=== PATIENT | male | born 1960 | race Caucasian/White ===

== ENCOUNTER → 2017-02-06 | Outpatient (CLI) | payer OTHER | END | disposition home or self-care (01) | LOC: C.LAB 17:38 | PROVIDERS: ATTEND Urology | DX: C61 Malignant neoplasm of prostate (principal) ==

== ENCOUNTER → 2017-02-13 | Outpatient (CLI) | payer OTHER ==
--- NOTE | 2017-02-13 14:35 | DIAGNOSTIC IMAGING REPORT ---
CT SCAN OF THE ABDOMEN AND PELVIS WITHOUT CONTRAST CLINICAL HISTORY: NEUROGENIC BLADDER, SOLITARY KIDNEY COMPARISON STUDY: Outside CT scan from [facility] dated 10/04/2015 TECHNIQUE: CT scan of the abdomen and pelvis was performed from the lung bases to the proximal femurs. Images are reviewed in the axial, sagittal, and coronal planes. IV contrast was not administered for this examination. A dose lowering technique was utilized adhering to the principles of ALARA. A Friedman catheter was placed into the patient's urostomy. Contrast was instilled. Initial images demonstrate the catheter at the level of the rectus fascia. No contrast was visualized within the loop urostomy. The catheter was repositioned, additional dilute Optiray 320 was injected. On the second sequence, contrast filled the loop urostomy. CT DOSE: 1947.62 mGycm FINDINGS: Lower chest: The heart is normal in size and configuration, without pericardial effusion. The lung bases and pleural spaces are clear. Liver: The unenhanced liver is normal in size, contour, and attenuation. There is no intrahepatic biliary ductal dilatation. Gallbladder: Surgically absent Spleen: Normal in size and attenuation. Pancreas: Unremarkable. Adrenal glands: Unremarkable. Kidneys: The left kidney is surgically absent. A portion of the left ureter is still present. The right kidney is lobulated in contour. There is persistent right-sided hydronephrosis. The ureter enters a short segment loop ostomy. The loop is opacified with contrast. There is no reflux of contrast into the right ureter. A stenosis at the ureteral ileal loop anastomosis must be considered. Bowel: There are no transition zone to indicate bowel obstruction. There are no acute inflammatory changes. Peritoneum: There is no intraperitoneal free air or abdominal ascites. Vasculature: The abdominal aorta is normal in course and caliber. Adenopathy: None. Pelvic viscera: The bladder surgically absent. There is a penile implant. Skeletal structures: No destructive osseous lesions are seen. IMPRESSION: 1. Postsurgical changes of a cystectomy and left-sided nephrectomy 2. Right lower quadrant ileal loop ostomy 3. Injected contrast filled the ileal loop, but there was no reflux of contrast into the right ureter 4. Lobulated right kidney with mild hydroureteronephrosis. The lack of reflux from the ileal loop into the right ureter, could indicate a stenosis at the ureteral ileal loop anastomosis 5. No evidence of pathologic adenopathy. Electronically signed by: Srinivasan Day M.D. 02/13/2017 2:34 PM Dictated Date/Time: 02/13/2017 2:23 PM
== END ==
LOC: C.CTS 13:10
PROVIDERS: ATTEND Urology
DX: C61 Malignant neoplasm of prostate (principal); N31.9 Neuromuscular dysfunction of bladder, unspecified; T85.8 Other specified complications of internal prosthetic devices, implants and grafts, not elsewhere classified; Y83.1 Surgical operation with implant of artificial internal device as the cause of abnormal reaction of the patient, or of later complication, without mention of misadventure at the time of the procedure; Z90.5 Acquired absence of kidney

== ENCOUNTER 2017-02-27 10:15 | Day surgery (SDC) | payer OTHER ==
[2017-02-19 15:13] VITALS: BMI 40.0
--- NOTE | 2017-02-19 15:48 | PAT Medication Instructions ---
Service Date Feb 19, 2017. Current Home Medication List Amlodipine (Norvasc), 5 MG PO QAM Ascorbic Acid (Vitamin C), 1 TAB PO QAM Aspirin (Aspirin Ec), 81 MG PO QPM Fish Oil (Harvey-3), 1 CAP PO QPM Fluoxetine (Prozac), 20 MG PO QAM Hydrocodone/Acetaminophen 7.5MG/325MG (Jackson 7.5MG/325MG), 1 TAB PO TID PRN for Pain Pantoprazole (Protonix), 40 MG PO QAM Phentermine Hcl (Adipex P), 0.5 TAB PO 6XWK Propranolol La (Inderal La), 120 MG PO QPM Medication Instructions For Your Scheduled Surgery - Hold the following medications 10 days prior to surgery: Aspirin (Aspirin Ec), 81 MG PO QPM Fish Oil (Harvey-3), 1 CAP PO QPM - Hold the following medications the morning of surgery: Phentermine Hcl (Adipex P), 0.5 TAB PO 6XWK Ascorbic Acid (Vitamin C), 1 TAB PO QAM - Take the following medications the morning of surgery with a sip of water: Pantoprazole (Protonix), 40 MG PO QAM Fluoxetine (Prozac), 20 MG PO QAM Hydrocodone/Acetaminophen 7.5MG/325MG (Jackson 7.5MG/325MG), 1 TAB PO TID PRN for Pain (if needed, can be taken up to four hours before surgery) Amlodipine (Norvasc), 5 MG PO QAM - Take the following medications as scheduled the night before surgery: Propranolol La (Inderal La), 120 MG PO QPM Hydrocodone/Acetaminophen 7.5MG/325MG (Jackson 7.5MG/325MG), 1 TAB PO TID PRN for Pain (if needed) If you have any questions please call us at [phone] or [phone] or [phone]
[2017-02-19 16:25] LABS: BASO % 0.9 %; BASO ABS # 0.08 K/uL (0-0.2); COMPLETE YES; EOS % 5.9 %; HEMATOCRIT 41.4 % (42-52); IG% 0.7 %; LYMPH % 33.1 %; LYMPH ABS # 2.87 K/uL (1.2-3.4); MEAN CELL VOLUME 86.3 fL (80-100); MEAN CORPUSCULAR HEMOGLOBIN 27.9 pg (25-34); MEAN CORPUSCULAR HGB CONC 32.4 g/dl (32-36); MEAN PLATELET VOLUME 9.3 fL (7.4-10.4); MONO % 13.5 %; NEUT % 45.9 %; PLATELET COUNT 213 K/uL (130-400); WHITE BLOOD COUNT 8.66 K/uL (4.8-10.8)
[2017-02-19 16:34] LABS: BUN/CREATININE RATIO 14.3 (10-20); CALCIUM 8.7 mg/dl (8.5-10.1); CREATININE 1.72 mg/dl (0.60-1.40); POTASSIUM 4.3 mmol/L (3.5-5.1)
[2017-02-19 16:39] LABS: URINE APPEARANCE CLOUDY (CLEAR); URINE BILIRUBIN NEG (NEG); URINE COLOR YELLOW; URINE EPITHELIAL CELL AUTO 0-5 /lpf (0-5); URINE NITRITE POS (NEG); URINE PH 5.5 (4.5-7.5); URINE SPECIFIC GRAVITY 1.018 (1.000-1.030); UROBILINOGEN NEG (NEG)
[2017-02-19 16:48] LABS: MANUAL MICROSCOPIC REQUIRED? NO; REVIEW REQ? NO
--- NOTE | 2017-02-19 17:25 | DIAGNOSTIC IMAGING REPORT ---
CHEST 2 VIEWS ROUTINE HISTORY: Preop. COMPARISON: None. FINDINGS: The lungs are clear. Cardiac silhouette is normal in size. No pleural effusions. No pneumothorax. IMPRESSION: No acute process. Electronically signed by: Guru Dewitt M.D. 02/19/2017 5:24 PM Dictated Date/Time: 02/19/2017 5:21 PM
[~2017-02-27] VITALS: Ht 175.3 cm; Wt 124.5 kg
[~2017-02-27 10:15] MED LIST: AMLO-110 PO; ASCO10003 PO; ASPI81TA28 PO; CEFAZOLIN 3000MG IV PUSH 15 ML IV SCH; FLUO20CA35 PO; HYDR-3983 PO; INDSR/120 PO; LACTATED RINGER'S 1000ML 1,000 ML IV SCH; OMEG10007 PO; PANT40TA PO; PHEN37.585 PO
[2017-02-27 10:44] VITALS: BP 146/91; PULSE 67; TEMP 37.1; O2SAT 98; Ht 175.3 cm; Wt 124.5 kg
--- NOTE | 2017-02-27 11:26 | History & Physical Bridge Note ---
H&P Re-Evaluation Bridge Note: I have examined the patient, reviewed the History & Physical and in the interval since the performance of the History & Physical I have noted the following changes of clinical significance: No changes noted
[2017-02-27] MEDS ORDERED: FENTANYL CITRATE INJ 50 MCG/1 ML 2 ML VIAL ONE ×2 (11:36→13:24)
[2017-02-27] MEDS ORDERED: MIDAZOLAM HCL 1 MG/ML 2ML VIAL ONE (11:36)
[2017-02-27] MEDS ORDERED: ONDANSETRON INJ 2 MG/ML 2 ML VIAL ONE (11:38)
[2017-02-27] MEDS ORDERED: PROPOFOL IV EMULSION 10 MG/ML 20 ML VIAL IV ONE (11:38)
[2017-02-27] MEDS ORDERED: LIDOCAINE HCL 2% 2 ML VIAL (20MG/ML) ONE (11:38)
[2017-02-27] MEDS ORDERED: CEFAZOLIN SOD 2000MG/10 ML IV PUSH IV ONE (11:44)
[2017-02-27] MEDS ORDERED: NURSING VERBAL MED ORDER ONE ×2 (11:45→15:15)
[2017-02-27] MEDS ORDERED: CEFAZOLIN SOD 3000MG/15 ML IV PUSH IV ONE (11:46)
[2017-02-27] MEDS ORDERED: CEPH500C2 PO (12:51)
--- NOTE | 2017-02-27 12:51 | Discharge Instructions ---
Discharge Instructions Date of Service Feb 27, 2017. Admission Reason for Admission: Stenosis Ileal Conduit Stoma Discharge Discharge Diagnosis / Problem: Right obstruction with ileal loop diversion Discharge Goals Goal(s): Decrease discomfort, Improve function Activity Recommendations Activity Limitations: resume your previous activity Lifting Limitations: no more than 25 pounds Exercise/Sports Limitations: as tolerated Shower/Bathe: no limitations . Instructions / Follow-Up Instructions / Follow-Up May have blood in urine. May have discomfort of right flank or abdomen. Call if any fevers or chills. Current Hospital Diet Patient's current hospital diet: Reg Discharge Diet Recommended Diet: Regular Diet Procedures Procedures Performed: Looposcopy with right retrograde and stent Pending Studies Studies pending at discharge: no Medical Emergencies . Who to Call and When: Medical Emergencies: If at any time you feel your situation is an emergency, please call 911 immediately. . Non-Emergent Contact Non-Emergency issues call your: Primary Care Provider, Urologist Call Non-Emergent contact if: you have a fever, temperature is above 101, temperature is above 101.5, your pain is not controlled, your pain is worsening . . "Provider Documentation" section prepared by Taz Canada,. . VTE Core Measure Inpt VTE Proph given/why not?: Daisy Denney, SCD's
[2017-02-27] MEDS ORDERED: OXYCODONE/ACETAMINOPHEN 7.5-325 TAB PO PRN (13:00)
[2017-02-27] MEDS ORDERED: LABETALOL HCL IV 5 MG/ML 20ML IV PRN (13:15)
[2017-02-27] MEDS ORDERED: FENTANYL CITRATE INJ 50 MCG/1 ML 2 ML VIAL IV PRN (13:15)
[2017-02-27] MEDS ORDERED: HYDROmorphone INJ 1 MG/ML SYR IV PRN (13:15)
[2017-02-27] MEDS ORDERED: ONDANSETRON INJ 2 MG/ML 2 ML VIAL IV PRN (13:15)
[2017-02-27] MEDS ORDERED: ATROPINE SULFATE 0.1 MG/ML 5ML SYR IV PRN (13:15)
[2017-02-27] MEDS ORDERED: MEPERIDINE HCL 25 MG/ML CARP IV PRN (13:15)
[2017-02-27] MEDS ORDERED: EpHEDrine SULFATE INJ 50 MG/ML AMP IV PRN (13:15)
[2017-02-27] MEDS ORDERED: METHYLENE BLUE 0.5% 10 ML VIAL ONE (13:27)
[2017-02-27] MEDS ORDERED: CONRAY 60% 50 ML VIAL ONE ×2 (13:37→13:52)
[2017-02-27] MEDS ORDERED: EpHEDrine SULFATE INJ 50 MG/ML AMP ONE (13:38)
--- NOTE | 2017-02-27 14:50 | [facility] Operative Report ---
Operative Report Operative Date Feb 27, 2017. Pre-Operative Diagnosis Obstruction right solitary kidney with renal failure and ileal loop diversion Post-Operative Diagnosis Same Procedure(s) Performed Looposcopy with loopogram and failed retrograde pyelogram Surgeon Dread Portable Track Line Marker Surgeon(s) None Estimated Blood Loss 10 Findings Obstruction at level of ureteric anastamosis at loop. In ability to advance wire Fluids See Anes Report Specimens None Drains 12 Fr Marshall into stoma Anesthesia General Complication(s) None Disposition Recovery Room / PACU Indications Obstruction of solitary kidney. Risks and benefits discussed. Description of Procedure Patient was consented and brought back to the operating room. Patient was placed under anesthesia in the supine position. Patient was prepped and draped in the regular sterile fashion. A time out was completed. A flexible Cystoscope was placed into the right lower quadrant loop stoma and the entire conduit was examined. T At the base of the loop, two possible openings was identified. Both were probed with a wire and an open ended catheter. The distal opening was able to have the wire partially advanced but on fluoroscopy the wire was curled and not able to be advanced. The scope was removed and a catheter was placed into the stoma. Contrast was injected into the loop for a loopogram. A small segment of ureter did fill with contrast however this abruptly ended. Contrast also pooled next to the conduit possible from reflux into the blinded ureter. The scope was once again placed and with fluorscopy and visualization a wire was attempted to be placed. The wire would partially advance and was unable to be further advanced. A catheter was unable to be passed over the wire. At this point, further attempts were ceased The scope was removed. A 12 fr marshall catheter was placed into the stoma and 7 cc of air was placed in the balloon to allow drainage of the ostomy. The patient was cleaned and a new appliance was placed. The patient aroused from anesthesia and transferred to the pacu in stable condition having tolerated the procedure well with no complications. I was present and participated in all aspects of the procedure. The patient will be monitored in the PACU until transferred. Will likely send patient for percutaneous nephrostomy placement to access the area of obstruction in an antegrade fashion I attest to the content of the Intraoperative Record and any orders documented therein. Any exceptions are noted below.
--- NOTE | 2017-02-27 14:52 | DIAGNOSTIC IMAGING REPORT ---
RETROGRADE INCLUDES KUB CLINICAL HISTORY: RETROGRADE WITH STENT PLACEMENT COMPARISON STUDY: CT of the abdomen and pelvis February 13, 2017. Fluoroscopy time: 94.7 seconds. FINDINGS: 4 fluoroscopic images from right retrograde exam were submitted for interpretation. These images demonstrate cannulation of the right lower quadrant urostomy. No reflux into the right ureter was noted. There was a suspected small amount of reflux into the left ureter. Ureteral stent could not be placed. The findings may reflect stenosis at the ureteral ileal loop anastomosis. IMPRESSION: Fluoroscopic images from retrograde exam, as detailed above. Electronically signed by: Brayan Mackay M.D. 02/27/2017 2:50 PM Dictated Date/Time: 02/27/2017 2:45 PM
[2017-02-27] MEDS ORDERED: PROMETHAZINE HCL INJ 12.5 MG in SODIUM CHLORIDE 0.9% 50ML 50 ML IV ONE (15:15)
[2017-02-27] MEDS ORDERED: ACETAMINOPHEN 1000 MG/100 ML IV IV ONE ×2 (15:23→15:30)
--- NOTE | 2017-02-27 15:42 | Anesthesiology Progress Note ---
Anesthesia Post Op Note Date & Time Feb 27, 2017 at 15:42 Vital Signs Pain Intensity: 4 Vital Signs Past 12 Hours Date Time Temp Pulse Resp B/P (MAP) Pulse Ox O2 Delivery O2 Flow Rate FiO2 02/27/17 15:35 62 18 138/83 95 Nasal Cannula 2 02/27/17 15:25 63 19 148/79 88 Room Air 02/27/17 15:15 72 24 136/87 94 Room Air 02/27/17 15:05 73 18 143/84 93 Room Air 02/27/17 14:55 66 19 124/78 97 Oxymask 10 02/27/17 14:45 68 16 117/76 98 Oxymask 10 02/27/17 14:38 36.4 67 16 116/76 97 Oxymask 10 02/27/17 10:44 37.1 67 20 146/91 (109) 98 Room Air Notes Mental Status: alert / awake / arousable, participated in evaluation Pt Amnestic to Procedure: Yes Nausea / Vomiting: adequately controlled Pain: adequately controlled Airway Patency, RR, SpO2: stable & adequate BP & HR: stable & adequate Hydration State: stable & adequate Anesthetic Complications: no major complications apparent
[2017-02-27 15:55] VITALS: BP 138/81; PULSE 62; TEMP 36.5; O2SAT 93
[2017-02-27 16:30] VITALS: BP 130/71; PULSE 63; O2SAT 96
[2017-02-27 17:00] VITALS: BP 140/81; PULSE 61; TEMP 36.5; O2SAT 96
== END 2017-02-27 17:23 | disposition home or self-care (01) ==
LOC: C.ACU 10:15
PROVIDERS: ATTEND Urology
DX: T85.8 Other specified complications of internal prosthetic devices, implants and grafts, not elsewhere classified (principal); N13.5 Crossing vessel and stricture of ureter without hydronephrosis; N18.4 Chronic kidney disease, stage 4 (severe); Z90.5 Acquired absence of kidney; N13.9 Obstructive and reflux uropathy, unspecified; I12.9 Hypertensive chronic kidney disease with stage 1 through stage 4 chronic kidney disease, or unspecified chronic kidney disease; M19.90 Unspecified osteoarthritis, unspecified site; Z87.891 Personal history of nicotine dependence; Z79.82 Long term (current) use of aspirin; Z79.899 Other long term (current) drug therapy

== ENCOUNTER → 2017-03-20 | Day surgery (SDC) | payer OTHER ==
[2017-03-16 13:46] VITALS: BMI 39.0
[~2017-03-20] VITALS: Ht 175.3 cm; Wt 120.5 kg
[~2017-03-20] MED LIST changes: +ATROPINE SULFATE 0.1 MG/ML 5ML SYR IV PRN; +BUPIVACAINE 0.5 % 5 MG/1 ML MPF 30ML VIAL ONE; -CEFAZOLIN 3000MG IV PUSH 15 ML IV SCH; +CIPROFLOXACIN / D5W 400 MG IV SCH; +CONRAY 30% 150ML BOTTLE ONE; +DEXAMETHASONE SOD INJ 4 MG/ML VIAL ONE; +EpHEDrine SULFATE INJ 50 MG/ML AMP IV PRN; +EpHEDrine SULFATE INJ 50 MG/ML AMP ONE; +FENTANYL CITRATE INJ 50 MCG/1 ML 2 ML VIAL IV PRN; +FENTANYL CITRATE INJ 50 MCG/1 ML 2 ML VIAL ONE; +GLYCOPYRROLATE INJ 0.2 MG/ML VIAL ONE; +HYDROmorphone INJ 0.5 MG/0.5 ML SYR IV PRN; +LABETALOL HCL IV 5 MG/ML 20ML IV PRN; +LIDOCAINE HCL 2% 2 ML VIAL (20MG/ML) ONE; +MEPERIDINE HCL 25 MG/ML CARP IV PRN; +MIDAZOLAM HCL 1 MG/ML 2ML VIAL ONE; +NEOSTIGMINE METHYLSULFATE 5 MG/5 ML SYR ONE; +NURSING VERBAL MED ORDER ONE; +ONDANSETRON INJ 2 MG/ML 2 ML VIAL IV ONE; +ONDANSETRON INJ 2 MG/ML 2 ML VIAL IV PRN; +ONDANSETRON INJ 2 MG/ML 2 ML VIAL ONE; +OXYC7.5T65 PO; +OXYCODONE/ACETAMINOPHEN 7.5-325 TAB PO PRN; +PHENYLEPHRINE 100MCG/ML 5ML SYR ONE; +PROPOFOL IV EMULSION 10 MG/ML 20 ML VIAL IV ONE; +ROCURONIUM BROMIDE 10 MG/ML 5 ML VIAL IV ONE; +SULF800T23 PO
[2017-03-20 10:21] VITALS: BP 135/76; PULSE 66; TEMP 36.9; O2SAT 95; Ht 175.3 cm; Wt 120.5 kg
--- NOTE | 2017-03-20 13:12 | Discharge Instructions ---
Discharge Instructions Date of Service Mar 20, 2017. Admission Reason for Admission: Stenosis Of Ileal Conduit Stones Discharge Discharge Diagnosis / Problem: Right obstruction Discharge Goals Goal(s): Decrease discomfort, Improve function Activity Recommendations Activity Limitations: resume your previous activity Lifting Limitations: no more than 10 pounds Exercise/Sports Limitations: as tolerated, rest today, gradually increase as tolerated Shower/Bathe: no limitations . Instructions / Follow-Up Instructions / Follow-Up Call if any fevers or chills. May have blood in urine. Continue maximum drainage and plan to follow up to reassess. Current Hospital Diet Patient's current hospital diet: Reg Discharge Diet Recommended Diet: Regular Diet Procedures Procedures Performed: Right Antegrade Ureteroscpy Pending Studies Studies pending at discharge: no Medical Emergencies . Who to Call and When: Medical Emergencies: If at any time you feel your situation is an emergency, please call 911 immediately. . Non-Emergent Contact Non-Emergency issues call your: Primary Care Provider, Urologist Call Non-Emergent contact if: you have a fever, temperature is above 101, temperature is above 101.5, your pain is not controlled, your pain is worsening , wound has increased redness . . "Provider Documentation" section prepared by Taz Canada,. . VTE Core Measure Inpt VTE Proph given/why not?: SCD's
--- NOTE | 2017-03-20 16:09 | DIAGNOSTIC IMAGING REPORT ---
RETROGRADE INCLUDES KUB CLINICAL HISTORY: 56 years-old Male presenting with ANTEGRADE CYSTO/STENT. TECHNIQUE: 2 fluoroscopic spot image(s) obtained as part of an intraoperative procedure. COMPARISON: 02/27/2017. FINDINGS/IMPRESSION: The right renal collecting system is opacified with contrast via a percutaneous approach. Subsequently a right nephrostomy tube was placed. Please see surgical report for further details. Fluoroscopy dosage (mGy): 326.20. Fluoroscopy time: 341.9 seconds. Number of fluoroscopic spot images: 2. Electronically signed by: Aditya Whipple M.D. 03/20/2017 4:07 PM Dictated Date/Time: 03/20/2017 4:06 PM
--- NOTE | 2017-03-20 16:10 | [facility] Operative Report ---
Operative Report Operative Date Mar 20, 2017. Pre-Operative Diagnosis Right obstructive uropathy Post-Operative Diagnosis Same Procedure(s) Performed Looposcopy with Right Antegrade ureteroscopy, Injection of Contrast for Nephrostogram, dilation of ureter, Stent placement, Nephrstomy tube placement Surgeon Dread Drafter Topographical Surgeon(s) Jenna Estimated Blood Loss 10 Findings Obstruction at level of uretero-ileal conduit anastomosis. Specimens None Drains 1. Right 10 Fr Nephrostomy Tube. 2. Right 6 x 28 Double J Stent Anesthesia General Complication(s) None Disposition Recovery Room / PACU Indications Obstruction of solitary kidney. Description of Procedure Patient was consented and brought back to the operating room. Patient was placed under anesthesia in the supine position. Patient was prepped and draped in the regular sterile fashion. A time out was completed. Patient was positioned to the lateral position with right side up. The nephrostomy tube in place was prepped and contrast injected for a nephrostogram. The renal pelvis was visualized. At this point, a wire was placed into the pelvis and the tube removed. An access sheath was selected and the track dilated after an incision was made with a scalpel. A second wire was then placed and a pyleogram again completed. A flexible ureteroscope was taken over the wire into the track and renal pelvis. The pelvis and ureter were examined. The strictured area was then canalized and the area examined. Multiple attempts to fully pass the wire were made, however it could not be confirmed into the conduit. A flexible cystoscopy was completed into the conduit by Dr. West. The wire was visualized in the conduit. With the wire passed the point of obstruction, a stent was attempted to be passed in order to dilate the track. The stent was then placed over the wire and confirmed with fluoroscopy. With the stent in place, the patient underwent a final nephrostogram and a nephrostomy tube was placed under fluoroscopy. With the tube in place, the patient was cleaned and bandages placed. The patient was cleaned, aroused from anesthesia, and transferred to the pacu in stable condition having tolerated the procedure well with no complications. I was present and participated in all aspects of the procedure. Dr. West assisted with antegrade ureteroscopy, dilation, and stent placement. He also completed the loopscopy portion of the procedure. I attest to the content of the Intraoperative Record and any orders documented therein. Any exceptions are noted below.
--- NOTE | 2017-03-20 16:15 | Anesthesiology Progress Note ---
Anesthesia Post Op Note Date & Time Mar 20, 2017 at 16:15 Vital Signs Pain Intensity: 3 Vital Signs Past 12 Hours Date Time Temp Pulse Resp B/P (MAP) Pulse Ox O2 Delivery O2 Flow Rate FiO2 03/20/17 16:05 73 16 122/63 95 Oxymask 5 03/20/17 15:55 74 16 138/67 96 Oxymask 5 03/20/17 15:47 36.4 70 16 135/74 96 Oxymask 5 03/20/17 10:21 36.9 66 18 135/76 (95) 95 Room Air Notes Mental Status: alert / awake / arousable, participated in evaluation Pt Amnestic to Procedure: Yes Nausea / Vomiting: adequately controlled Pain: adequately controlled Airway Patency, RR, SpO2: stable & adequate BP & HR: stable & adequate Hydration State: stable & adequate Anesthetic Complications: no major complications apparent
[2017-03-20 16:25] VITALS: BP 151/89; PULSE 74; TEMP 37; O2SAT 94
[2017-03-20 16:55] VITALS: BP 130/77; PULSE 68; O2SAT 98
[2017-03-20 17:37] VITALS: BP 152/83; PULSE 75; TEMP 36.6; O2SAT 95
== END | disposition home or self-care (01) ==
LOC: C.ACU 09:51
PROVIDERS: ATTEND Urology
DX: N13.9 Obstructive and reflux uropathy, unspecified (principal); N18.4 Chronic kidney disease, stage 4 (severe); G47.33 Obstructive sleep apnea (adult) (pediatric); E66.01 Morbid (severe) obesity due to excess calories; N13.30 Unspecified hydronephrosis; M19.90 Unspecified osteoarthritis, unspecified site; N31.9 Neuromuscular dysfunction of bladder, unspecified; Z87.891 Personal history of nicotine dependence; Z85.46 Personal history of malignant neoplasm of prostate; Z90.5 Acquired absence of kidney; Z90.49 Acquired absence of other specified parts of digestive tract

== ENCOUNTER → 2017-05-09 | Outpatient (CLI) | payer OTHER ==
[~2017-05-09] MED LIST changes: -ATROPINE SULFATE 0.1 MG/ML 5ML SYR IV PRN; -BUPIVACAINE 0.5 % 5 MG/1 ML MPF 30ML VIAL ONE; -CIPROFLOXACIN / D5W 400 MG IV SCH; -CONRAY 30% 150ML BOTTLE ONE; -DEXAMETHASONE SOD INJ 4 MG/ML VIAL ONE; -EpHEDrine SULFATE INJ 50 MG/ML AMP IV PRN; -EpHEDrine SULFATE INJ 50 MG/ML AMP ONE; -FENTANYL CITRATE INJ 50 MCG/1 ML 2 ML VIAL IV PRN; -FENTANYL CITRATE INJ 50 MCG/1 ML 2 ML VIAL ONE; -GLYCOPYRROLATE INJ 0.2 MG/ML VIAL ONE; -HYDROmorphone INJ 0.5 MG/0.5 ML SYR IV PRN; -LABETALOL HCL IV 5 MG/ML 20ML IV PRN; -LACTATED RINGER'S 1000ML 1,000 ML IV SCH; -LIDOCAINE HCL 2% 2 ML VIAL (20MG/ML) ONE; -MEPERIDINE HCL 25 MG/ML CARP IV PRN; -MIDAZOLAM HCL 1 MG/ML 2ML VIAL ONE; -NEOSTIGMINE METHYLSULFATE 5 MG/5 ML SYR ONE; -NURSING VERBAL MED ORDER ONE; -ONDANSETRON INJ 2 MG/ML 2 ML VIAL IV ONE; -ONDANSETRON INJ 2 MG/ML 2 ML VIAL IV PRN; -ONDANSETRON INJ 2 MG/ML 2 ML VIAL ONE; -OXYCODONE/ACETAMINOPHEN 7.5-325 TAB PO PRN; -PHENYLEPHRINE 100MCG/ML 5ML SYR ONE; -PROPOFOL IV EMULSION 10 MG/ML 20 ML VIAL IV ONE; -ROCURONIUM BROMIDE 10 MG/ML 5 ML VIAL IV ONE; -SULF800T23 PO
--- NOTE | 2017-05-09 14:57 | DIAGNOSTIC IMAGING REPORT ---
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 FINDINGS: Right kidney: 13.7 cm. Mild hydronephrosis, unchanged. Multifocal cortical scarring is also unchanged. The visualized proximal right ureter also remains dilated up to 1 cm. Left kidney: Surgically absent. Bladder: Not identified and may be surgically absent. IMPRESSION: 1. No change in the mild hydronephrosis and multifocal cortical scarring within the right kidney. 2. The left kidney is surgically absent. Electronically signed by: Guru Dewitt M.D. 05/09/2017 2:56 PM Dictated Date/Time: 05/09/2017 2:54 PM
== END ==
LOC: C.ULTR 14:05
PROVIDERS: ATTEND Urology
DX: N31.9 Neuromuscular dysfunction of bladder, unspecified (principal); N13.5 Crossing vessel and stricture of ureter without hydronephrosis